=== PATIENT | female | born 1965 | race Caucasian/White ===

== ENCOUNTER 2017-07-28 07:44 | Emergency (ER) | payer SELFPAY ==
[2017-07-28 08:03] VITALS: BP 133/76
--- NOTE | 2017-07-28 08:18 | UC ---
Skin Complaint HPI - HPI Summary HPI Summary: RIGHT INDEX FINGER PAIN X 2 DAYS + REDNESS, SWELLING OF THE RIGHT INDEX FINGER, + NAIL TENDERNESS, DISCHARGE FOR THE NAIL - History of Current Complaint Chief Complaint: UCSkin Time Seen by Provider: 07/28/17 08:06 Stated Complaint: RT FIRST FINGER COMPLAINT Hx Obtained From: Patient Hx Last Menstrual Period: 04/24 Onset/Duration: Gradual Onset, Lasting Days - 2, Still Present Timing: Constant Onset Severity: Moderate Current Severity: Moderate Location: Other - RIGHT INDEX FINGER Character: Swelling, Pain, Redness, Raised, Painful Aggravating Factor(s): Touch Alleviating Factor(s): Nothing Associated Signs & Symptoms: Positive: Tenderness. Negative: Nausea, Vomiting, Numbness, Rash, Red Streaks - Allergy/Home Medications Allergies/Adverse Reactions: Allergies Allergy/AdvReac Type Severity Reaction Status Date / Time No Known Allergies Allergy Verified 07/28/17 08:03 Home Medications: Home Medications Ibuprofen TAB* [Motrin TAB* 800 MG] 800 mg PO ONCE 07/28/17 [History Confirmed 07/28/17] Review of Systems Constitutional: Negative Skin: Negative Eyes: Negative ENT: Negative Respiratory: Negative Cardiovascular: Negative Is Patient Immunocompromised?: No All Other Systems Reviewed And Are Negative: Yes PMH/Surg Hx/FS Hx/Imm Hx Previously Healthy: Yes - Surgical History Surgical History: Yes Surgery Procedure, Year, and Place: c-sect - Family History Known Family History: Negative: Diabetes - Social History Alcohol Use: None Substance Use Type: None Smoking Status (MU): Never Smoked Tobacco Physical Exam Triage Information Reviewed: Yes Appearance: Well-Appearing, No Pain Distress, Well-Nourished Vital Signs: Initial Vital Signs Temp 99.9 F 07/28/17 07:59 Pulse 74 07/28/17 07:59 Resp 14 07/28/17 07:59 BP 133/76 07/28/17 07:59 Pulse Ox 100 07/28/17 07:59 Vital Signs Reviewed: Yes Eye Exam: Normal Eyes: Positive: Conjunctiva Clear ENT: Positive: Normal ENT inspection, Hearing grossly normal, Pharynx normal Neck: Positive: Supple, Nontender, No Lymphadenopathy Respiratory: Positive: Chest non-tender, Lungs clear, Normal breath sounds Cardiovascular: Positive: RRR, No Murmur, Pulses Normal Skin: Positive: Other - RIGHT INDEX FINGER : MILD AVULSION OF THE NAIL, + SWELLING OF THE DISTAL FINGER, +ERYTHEMA, TENDER TO TOUCH , MILD DISCHARGE Course/Dx - Diagnoses Provider Diagnoses: AVULSION FINGER NAIL RIGHT INDEX. CELLULITIS FINGER Discharge - Discharge Plan Condition: Stable Disposition: HOME Prescriptions: Cephalexin CAP* [Keflex CAP*] 500 mg PO TID #21 cap Patient Education Materials: Cellulitis (ED), Nail Avulsion (ED) Referrals: No Primary Care Phys,NOPCP [Primary Care Provider] - 5 Days Additional Instructions: INFECTION OF THE NAIL BED USE WARM SOAKS , KEFLEX X 7 DAYS TAKE TYLENOL NEEDED FOR PAIN
== END 2017-07-28 08:19 | disposition home or self-care (01) ==
LOC: UCCORT 07:44
DX: S61.300A Unspecified open wound of right index finger with damage to nail, initial encounter (principal); L03.011 Cellulitis of right finger; X58.XXXA Exposure to other specified factors, initial encounter; Y92.9 Unspecified place or not applicable
CPT/HCPCS: 99202; G0463